=== PATIENT | female | born 1990 | race Caucasian/White ===

== ENCOUNTER 2017-08-17 22:18 | Emergency (ER) | payer OTHER ==
[2017-08-17 22:23] VITALS: BMI 24.9
[2017-08-17 22:36] VITALS: RESP 18; TEMP 98.3; O2SAT 100
[2017-08-17] MEDS ORDERED: Sodium Chloride 0.9% 1,000 ML IV STA (22:54)
[2017-08-17 23:06] LABS: BASO # 0.02 K/mm3 (0.0-2.0); BASO % 0.3 % (0.0-3.0); EOS # 0.1 (0.0-0.7); EOS % 1.1 % (1.5-5.0); GRAN # 3.39 (1.4-6.5); GRAN % 55.1 % (50.0-68.0); HEMOGLOBIN 12.7 g/dL (12.0-16.0); LYMPH # 2.3 (1.2-3.4); LYMPH % 37.6 % (22.0-35.0); MEAN CELL VOLUME 93.9 fl (80.0-105.0); MEAN CORPUSCULAR HEMOGLOBIN 30.9 pg (25.0-35.0); MEAN CORPUSCULAR HGB CONC 32.9 g/dl (31.0-37.0); MEAN PLATELET VOLUME 9.8 fl (7.0-11.0); MONO # 0.4 (0.1-0.6); MONO % 5.9 % (1.0-6.0); RBC 4.11 10^6/uL (3.5-6.1); RED CELL DISTRIBUTION WIDTH 12.7 % (11.5-14.5); WHITE BLOOD COUNT 6.2 10^3/ul (4.5-11.0)
[2017-08-17 23:19] LABS: ALB/GLOB RATIO 1.3 (1.1-1.8); ALBUMIN 4.2 g/dL (3.0-4.8); ALT/SGPT 29 U/L (7-56); AST/SGOT 23 U/L (14-36); BLOOD UREA NITROGEN 15 mg/dL (7-21); CALCIUM 9.3 mg/dL (8.4-10.5); GFR AFRICAN-AMERICAN > 60; GFR NON-AFRICAN AMERICAN > 60; LIPASE 84 U/L (23-300)
[2017-08-17 23:20] LABS: INR 1.03 (0.93-1.08); PARTIAL THROMBOPLASTIN TIME 33.3 Seconds (25.1-36.5); PROTHROMBIN TIME 11.8 SECONDS (9.4-12.5)
[2017-08-17 23:26] LABS: PH,URINE 6.5 (4.7-8.0); URINE BILIRUBIN NEGATIVE (NEGATIVE); URINE BLOOD SMALL (NEGATIVE); URINE GLUCOSE (UA) NEGATIVE (NEGATIVE); URINE LEUKOCYTE ESTERASE TRACE Leu/uL (NEGATIVE); URINE NITRATE NEGATIVE (NEGATIVE); URINE PROTEIN NEGATIVE mg/dL (<30 mg/dL); URINE UROBILINOGEN 0.2 E.U./dL (<1 E.U./dL)
--- NOTE | 2017-08-17 23:31 | ED PDOC ---
Arrival/HPI - General Chief Complaint: GI Problem Time Seen by Provider: 08/17/17 22:33 Historian: Patient, Other (significant other) - History of Present Illness Narrative History of Present Illness (Text): you were [facility] in [facility] ED [facility] and got back about 1wk ago with now nausea/vomiting/diarrhea with abdomen cramping but no blood or bile but your significant other was recently discharged from another hospital with enterocolitis and otherwise without any headache/dizziness/difficulty breathing/chest pain/abdomen pain/numbness/tingling/loss of limb function/pain with urination/vaginal bleeding or discharge. You refused sexual disease testing or treatment. 08/17/17 23:28 Time/Duration: 24 hours Symptom Onset: Gradual Symptom Course: Unchanged Quality: Aching Severity Level: 1 Activities at Onset: Rest Context: Sitting Past Medical History - Provider Review Nursing Documentation Reviewed: Yes - Travel History Have you recently traveled outside [place] w/in the past 3 mons?: Yes If Yes, travel location?: [facility], t-[id number] - Infectious Disease Hx of Infectious Diseases: None - Cardiac Hx Cardiac Disorders: No - Pulmonary Hx Respiratory Disorders: No - Neurological Hx Neurological Disorder: No - HEENT Hx HEENT Disorder: No - Renal Hx Renal Disorder: No - Endocrine/Metabolic Hx Endocrine Disorders: No - Hematological/Oncological Hx Blood Disorders: No - Integumentary Hx Dermatological Disorder: No - Musculoskeletal/Rheumatological Hx Musculoskeletal Disorders: No - Genitourinary/Gynecological Hx Genitourinary Disorders: No - Psychiatric Hx Psychophysiologic Disorder: No Hx Substance Use: No - Anesthesia Hx Anesthesia: No - Suicidal Assessment Feels Threatened In Home Enviroment: No Family/Social History - Physician Review Nursing Documentation Reviewed: Yes Family/Social History: No Known Family HX Smoking Status: Never Smoked Hx Alcohol Use: Yes Hx Substance Use: No Allergies/Home Meds Allergies/Adverse Reactions: Allergies No Known Allergies Allergy (Verified 11/12/14 10:11) Review of Systems - Review of Systems Constitutional: Normal Eyes: Normal ENT: Normal Respiratory: Normal Cardiovascular: Normal Gastrointestinal: Abdominal Pain, Diarrhea, Nausea, Vomiting Genitourinary Female: Normal Musculoskeletal: Normal Skin: Normal Neurological: Normal Endocrine: Normal Hemo/Lymphatic: Normal Psychiatric: Normal Physical Exam Vital Signs Reviewed: Yes Vital Signs Temp Pulse Resp BP Pulse Ox 08/18/17 00:34 77 18 112/63 100 08/17/17 22:35 98.3 F 71 18 131/59 L 100 Temperature: Afebrile Blood Pressure: Hypertensive Pulse: Regular Respiratory Rate: Normal Appearance: Positive for: Well-Appearing, Non-Toxic, Comfortable Pain Distress: None Mental Status: Positive for: Alert and Oriented X 3 - Systems Exam Head: Present: Atraumatic, Normocephalic Pupils: Present: PERRL Extroacular Muscles: Present: EOMI Conjunctiva: Present: Normal Ears: Present: Normal Mouth: Present: Moist Mucous Membranes Pharnyx: Present: Normal Nose (External): Present: Atraumatic Nose (Internal): Present: Normal Inspection Neck: Present: Normal Range of Motion Respiratory/Chest: Present: Clear to Auscultation, Good Air Exchange Cardiovascular: No: Regular Rate and Rhythm, Murmurs, Normal S1, S2, Irregular Rhythm, Peripheal Pulses Present, Tachycardic, Bradycardic, Rub, Gallop, Muffled , Other Abdomen: Present: Tenderness, Other (mild LLQ discomfort but no other tenderness. soft.) Back: Present: Normal Inspection Upper Extremity: Present: Normal Inspection Lower Extremity: Present: Normal Inspection Neurological: Present: GCS=15, CN II-XII Intact, Speech Normal, Motor Func Grossly Intact Skin: Present: Warm, Normal Color Psychiatric: Present: Alert, Oriented x 3, Normal Insight, Normal Concentration Medical Decision Making ED Course and Treatment: you were treated in the ED today for being in [facility] and got back about 1wk ago with now nausea/vomiting/diarrhea with abdomen cramping but no blood or bile but your significant other was recently discharged from another hospital with enterocolitis and otherwise without any headache/dizziness/difficulty breathing/chest pain/abdomen pain/numbness/tingling/loss of limb function/pain with urination/vaginal bleeding or discharge. You refused sexual disease testing or treatment. You were otherwise breathing easily, pink moist lips, smiling and talking with your significant other, good strength/sensation, alert/ oriented, walking easily, clear lungs, mild left abdomen discomfort, you refused pelvic exam and cautioned for missed diagnosis/complications but you stated you will complete in gynecology clinic, no fever temp 98.3, stable heart rate 71, stable breathing rate 18, excellent oxygen level 100% room air, elevated blood pressure 131/59 which we recommend repeat in 2-3 days primary care office to determine further treatment, you have blood tests no infection count 6, stable blood level hemoglobin 12/platelets 236, stable chemistry, mildly low potassium 3.5, urine test unclear sign of infection and you have no pain with urination, urine test negative, lipase normal 84, radiology ct abdomen/pelvis findings suggestive of diarrhea illness/involuting or ruptured left ovarian follice or cyst, zofran, toradol, intravenous fluids, observation done in the ED with improvement, counselled to monitor pain and thus discharged home with significant other. 1. Recommend eat foods with potassium daily ie bananas. 2. Recommend zofran for nausea/vomiting directed. 3. Recommend follow-up primary care 2-3 days to review symptoms, to get final urine tests/cultures as urine test no clear sign of infection and you have no pain with urination thus to determine further treatment, repeat potassium level , referral to gastroenterology clinic to review symptoms, referral to gynecology clinic for left ovary cyst to ensure no complications/cancer development. 4. If any worsening pain, fever, chills, nausea, vomiting, difficulty breathing, numbness, loss of limb function, pain with urination or any medical condition then return to the ED. 08/17/17 23:31 EXAM: CT Abdomen and Pelvis With Intravenous Contrast Dictated and Authenticated by: Jonny Ramirez MD 08/18/2017 12:41 AM IMPRESSION: 1. Fluid/loose stool within bowel may suggest diarrhea illness. 2. Involuting or ruptured LEFT ovarian follicle/cyst. 3. Incidental/non-acute findings are described above Reproductive: 1.6 x 1.2 x 1.6 cm peripherally enhancing hypodensity with crenulated margins within LEFT ovary. IUD 08/18/17 01:18 08/18/17 01:21 Reassessment Condition: Improved - Lab Interpretations Lab Results: 08/17/17 22:30 08/17/17 22:30 Lab Results 08/17/17 23:00: Urine Color Yellow, Urine Appearance Sl cloudy, Urine pH 6.5, Ur Specific [place] 1.010, Urine Protein Negative, Urine Glucose (UA) Negative, Urine Ketones Negative, Urine Blood Small H, Urine Nitrate Negative, Urine Bilirubin Negative, Urine Urobilinogen 0.2, Ur Leukocyte Esterase Trace H, Urine RBC 1 - 3, Urine WBC 1 - 3, Ur Epithelial Cells 1 - 3 08/17/17 22:30: Sodium 138, Potassium 3.5 L, Chloride 101, Carbon Dioxide 28, Anion Gap 13, BUN 15, Creatinine 0.6 L, Est GFR ( Amer) > 60, Est GFR ( Non-Af Amer) > 60, Random Glucose 96, Calcium 9.3, Total Bilirubin 0.6, AST 23, ALT 29, Alkaline Phosphatase 65, Total Protein 7.4, Albumin 4.2, Globulin 3.2, Albumin/Globulin Ratio 1.3, Lipase 84 08/17/17 22:30: PT 11.8, INR 1.03, APTT 33.3 08/17/17 22:30: WBC 6.2, RBC 4.11, Hgb 12.7, Hct 38.6, MCV 93.9, MCH 30.9, MCHC 32.9, RDW 12.7, Plt Count 236, MPV 9.8, Gran % 55.1, Lymph % (Auto) 37.6 H, [place] % (Auto) 5.9, Eos % (Auto) 1.1 L, Baso % (Auto) 0.3, Gran # 3.39, Lymph # ( Auto) 2.3, [place] # (Auto) 0.4, Eos # (Auto) 0.1, Baso # (Auto) 0.02 I have reviewed the lab results: Yes - RAD Interpretation Radiology Orders: 08/17/17 23:33 ABDOMEN & PELVIS [ABD & PELVIS IV CONTRAST ONLY] [CT] Stat [employer] Library Manager: Radiologist (see mdm for ct a/p) - Medication Orders Current Medication Orders: Discontinued Medications Sodium Chloride (Sodium Chloride 0.9%) 1,000 mls @ 999 mls/hr IV .Q1H1M STA Stop: 08/17/17 23:54 Last Admin: 08/17/17 22:55 Dose: 999 mls/hr eMAR Start Stop Document 08/17/17 22:55 RD (Rec: 08/17/17 23:05 RD [id number]) Intravenous Solution Start Date 08/17/17 Start Time 22:55 End Date 08/17/17 End time 23:55 Total Infusion Time 60 Ketorolac Tromethamine (Toradol) 15 mg IVP STAT STA Stop: 08/17/17 22:55 Last Admin: 08/17/17 23:05 Dose: 15 mg MAR Pain Assessment Document 08/17/17 23:05 RD (Rec: 08/17/17 23:06 RD [id number]) Pain Reassessment Is this a pain reassessment? No Sleep Is patient sleeping during reassessment? No Presence of Pain Presence of Pain Yes IVP Administration Document 08/17/17 23:05 RD (Rec: 08/17/17 23:06 RD [id number]) Charges for Administration # of IVP Administrations 1 Ondansetron HCl (Zofran Inj) 4 mg IVP STAT STA Stop: 08/17/17 22:55 Last Admin: 08/17/17 23:03 Dose: 4 mg IVP Administration Document 08/17/17 23:03 RD (Rec: 08/17/17 23:05 RD [id number]) Charges for Administration # of IVP Administrations 1 Disposition/Present on Arrival - Present on Arrival Any Indicators Present on Arrival: No History of DVT/PE: No History of Uncontrolled Diabetes: No Urinary Catheter: No History of Decub. Ulcer: No History Surgical Site Infection Following: None - Disposition Have Diagnosis and Disposition been Completed?: Yes Diagnosis: Ovarian cyst, Gastroenteritis Disposition: HOME/ ROUTINE Disposition Time: :23 Patient Plan: Discharge Patient Problems: Current Active Problems Problem Status Onset Gastroenteritis Acute Ovarian cyst Acute Condition: IMPROVED Additional Instructions: you were treated in the ED today for being in [facility] and got back about 1wk ago with now nausea/vomiting/diarrhea with abdomen cramping but no blood or bile but your significant other was recently discharged from another hospital with enterocolitis and otherwise without any headache/dizziness/difficulty breathing/chest pain/abdomen pain/numbness/tingling/loss of limb function/pain with urination/vaginal bleeding or discharge. You refused sexual disease testing or treatment. You were otherwise breathing easily, pink moist lips, smiling and talking with your significant other, good strength/sensation, alert/ oriented, walking easily, clear lungs, mild left abdomen discomfort, you refused pelvic exam and cautioned for missed diagnosis/complications but you stated you will complete in gynecology clinic, no fever temp 98.3, stable heart rate 71, stable breathing rate 18, excellent oxygen level 100% room air, elevated blood pressure 131/59 which we recommend repeat in 2-3 days primary care office to determine further treatment, you have blood tests no infection count 6, stable blood level hemoglobin 12/platelets 236, stable chemistry, mildly low potassium 3.5, urine test unclear sign of infection and you have no pain with urination, urine test negative, lipase normal 84, radiology ct abdomen/pelvis findings suggestive of diarrhea illness/involuting or ruptured left ovarian follice or cyst, zofran, toradol, intravenous fluids, observation done in the ED with improvement, counselled to monitor pain and thus discharged home with significant other. 1. Recommend eat foods with potassium daily ie bananas. 2. Recommend zofran for nausea/vomiting directed. 3. Recommend follow-up primary care 2-3 days to review symptoms, to get final urine tests/cultures as urine test no clear sign of infection and you have no pain with urination thus to determine further treatment, repeat potassium level , referral to gastroenterology clinic to review symptoms, referral to gynecology clinic for left ovary cyst to ensure no complications/cancer development. 4. If any worsening pain, fever, chills, nausea, vomiting, difficulty breathing, numbness, loss of limb function, pain with urination or any medical condition then return to the ED. Prescriptions: Ondansetron ODT [Zofran ODT] 4 mg PO Q8 PRN 5 Days #20 odt PRN Reason: Nausea/Vomiting Forms: [facility] (Bulgarian), WORK NOTE
[2017-08-17] MEDS ORDERED: Iohexol 350 MG/100 ML VIAL ONE (23:40)
[2017-08-18 00:10] LABS: URINE COLOR YELLOW (YELLOW)
[2017-08-18 00:11] LABS: URINE APPEARANCE SL CLOUDY (CLEAR)
[2017-08-18 00:35] VITALS: BP 112/63; PULSE 77
--- NOTE | 2017-08-18 00:42 | CT ---
EXAM: CT Abdomen and Pelvis With Intravenous Contrast CLINICAL HISTORY: 26 years old, female; Pain; Abdominal pain; Localized; Left; Additional info: 26yof, with left sided abdomen tenderness TECHNIQUE: Axial computed tomography images of the abdomen and pelvis with intravenous contrast. All CT scans at this facility use one or more dose reduction techniques, viz.: automated exposure control; ma/kV adjustment per patient size (including targeted exams where dose is matched to indication; i.e. head); or iterative reconstruction technique. Coronal and sagittal reformatted images were created and reviewed. CONTRAST: 100 mL of omnipaque 350 administered intravenously. COMPARISON: No relevant prior studies available. FINDINGS: Lower thorax: No acute findings. ABDOMEN: Liver: Minimal periportal edema. Gallbladder and bile ducts: No calcified stones. No ductal dilation. Pancreas: No ductal dilation. No mass. Spleen: No splenomegaly. Adrenals: No mass. Kidneys and ureters: No mass. No hydronephrosis. Stomach and bowel: Fluid within small bowel. Fluid/loose stool within large bowel. No definite mural thickening. No obstruction. Appendix: Normal caliber. No inflammation. Appendicolith. PELVIS: Bladder: Unremarkable. Reproductive: 1.6 x 1.2 x 1.6 cm peripherally enhancing hypodensity with crenulated margins within LEFT ovary. IUD. ABDOMEN and PELVIS: Intraperitoneal space: Trace free fluid within pelvis. No free air. Bones/joints: No acute fracture. Soft tissues: Unremarkable. Vasculature: Unremarkable. No aneurysm. Lymph nodes: No pathologically enlarged lymph nodes. IMPRESSION: 1. Fluid/loose stool within bowel may suggest diarrhea illness. 2. Involuting or ruptured LEFT ovarian follicle/cyst. 3. Incidental/non-acute findings are described above.
== END 2017-08-18 01:30 | disposition home or self-care (01) ==
LOC: ED 22:18
DX: K52.9 Noninfective gastroenteritis and colitis, unspecified (principal); N83.202 Unspecified ovarian cyst, left side
CPT/HCPCS: 74177; 80053; 81001; 83690; 85025; 85610; 85730; 87086; 96361; 96374; 96375; 99284; J1885; J2405; J7040; Q9967